=== PATIENT | female | born 1990 | race Caucasian/White ===

== ENCOUNTER 2017-11-01 16:33 | Emergency (ER) | payer OTHER ==
--- NOTE | 2017-11-01 17:14 | PD ---
HPI Chief Complaint Contractions and pelvic pressure Date Seen: November 01, 2017 Time Seen: 17:08 Travel History International Travel<30 Days: No Contact w/Intl Traveler<30Days: No Known Affected Area: No History of Present Illness HPI Patient is 27-year-old white female at 34-1/[address] Lockhart for care presents now complaining of contractions today, no bleeding or leakage of fluid, heart rate tracing is reactive, she is not paula regularly at this time Weeks Gestation: 34 Para: 3 : 4 History Obstetric History Obstetric History 3 vaginal deliveries last one was at 36+ weeks Social History Alcohol Use: No Tobacco Use: No Substance Abuse: No Allergies-Medications (Allergen,Severity, Reaction): Coded Allergies: No Known Allergies (Unverified , 02/18/15) Review of Systems General / Constitutional: No: Fever, Weight Gain, Chills, Other Eyes: No: Diploplia, Blurred Vision, Visual changes, Pain, Photophobia HENT: No: Headaches, Vertigo, Lightheadedness Cardiovascular: No: Irregular Rhythm, Chest Pain or Discomfort, Palpitations, Tachycardia, Syncope, Varicosities, Edema, Cyanosis Respiratory: No: Cough, Short of Breath, Other Gastrointestinal: Abdominal Pain, No: Nausea, Vomiting, Diarrhea Genitourinary: No: Decreased Urinary Output, Oliguria Musculoskeletal: No: Limited ROM, Weakness, Cramping, Edema, Pain Skin: No Rash, No Itching, No Dryness, No Lumps, No Change in Pigmentation, No Change in Nails, No Alopecia, No Lesions Neurologic: No: Weakness, Dizziness, Syncope, Focal Abnormalities, Coordination Problem, Headache, Slurred Speech, Seizures Psychiatric: No: Depression, Suicidal Ideations, Homicidal Ideation Endocrine: No: Heat Intolerance, Cold Intolerance, Polydipsia, Polyuria, Other Physical Exam Narrative GENERAL: Well-nourished, well-developed patient. SKIN: Warm and dry. HEAD: Normocephalic and atraumatic. EYES: No scleral icterus. No injection or drainage. ENT: No nasal drainage noted. Mucous membranes pink. Airway patent. NECK: Supple, trachea midline. No JVD. CARDIOVASCULAR: Regular rate and rhythm without murmurs, gallops, or rubs. RESPIRATORY: Breath sounds equal bilaterally. No accessory muscle use. BREASTS: Bilateral exam showed no masses , no retractions, no nipple discharge. ABDOMEN/GI: Abdomen soft, non-tender, bowel sounds present, no rebound, no guarding Gravid to [34-] weeks size Fundal Height: [-34] GENITOURINARY: External Genitalia: intact and normal in appearance BUS glands: [-] Cervix: [post-] Dilatation: [2-] Effacement: [thick-] Station: [-3] Presentation: [vtx-] Membranes: [intact ] Uterine Contractions: [no reg ctx-] FHT's: Category: [1-] Baseline: [133-] Reactive: [R-] Variability: [mod-] Decels: [-0] EXTREMITIES: No cyanosis or edema. BACK: Nontender without obvious deformity. No CVA tenderness. NEUROLOGICAL: Awake and alert. Motor and sensory grossly within normal limits. Five out of 5 muscle strength in all muscle groups. Normal speech. Data Data Labs Urine dip on OB ED is significant for large blood but negative elsewhere MDM Interpretation(s) 27-year-old white female at 34/35 weeks presents complaining contractions pelvic pressure. Here on OB ED she is not paula regularly heart rate tracing is reactive and her cervix is unchanged from the office check by Dr. Lockhart which was 2 cm/thick/-3 and very posterior. Will monitor for contractions if contractions are seen and will begin IV tocolyse is with IV fluid, subcu terbutaline, IV narcotic if needed. If no contractions are seen and would consider just a pain shot and send the patient home Plan Plan to monitor for contraction activity, p.o. hydrate, at home she can use Tylenol as needed to every 4 as needed, increase her p.o. fluids for hydration, bedrest, heating pad or hot bath for symptom relief. Follow-up with her OB provider Diagnosis Diagnosis: Primary Impression: [place] contractions Additional Impression: 34 weeks gestation of Disposition: 01 DISCHARGE HOME Condition: Stable Evert Maciel II, MD November 01, 2017 17:14
[2017-11-01 18:05] LABS: AMORPHOUS SEDIMENT, URINE RARE; BILIRUBIN, URINE NEG (NEG); BLOOD, URINE MOD (NEG); GLUCOSE,URINE NEG (NEG); KETONE, URINE NEG (NEG); MUCUS URINE FEW /lpf (OCC); NITRITE,URINE NEG (NEG); PH, URINE 6.5 (5.0-8.5); SQUAMOUS EPITHELIAL CELL URINE <1 /hpf (0-5); URINE COLOR YELLOW (YELLW/STRAW); URINE LEUKOCYTE ESTERASE NEG (NEG)
== END 2017-11-01 17:55 | disposition home or self-care (01) ==
LOC: HOBED 16:33
DX: O47.03 False labor before 37 completed weeks of gestation, third trimester (principal); O26.893 Other specified pregnancy related conditions, third trimester; Z3A.34 34 weeks gestation of pregnancy
CPT/HCPCS: 59025; 81001

== ENCOUNTER 2017-11-18 01:32 | Inpatient (IN) | payer OTHER ==
[~2017-11-18] VITALS: Ht 162.6 cm; Wt 57.0 kg
[2017-11-18] VITALS (16 sets, daily range): BP systolic 95–132; BP diastolic 48–86; PULSE 73–95; RESP 16–18; TEMP 97.7–98.2; O2SAT 98
[2017-11-18] MEDS ORDERED: MULT1TAB46 PO (01:56)
[2017-11-18] MEDS ORDERED: LACTATED RINGER'S 1000 ML INJ 1,000 ML IV SCH (02:13)
[2017-11-18] MEDS ORDERED: LACTATED RINGER'S 1000 ML INJ 1,000 ML IV PRN (02:13)
[2017-11-18] MEDS ORDERED: LIDOCAINE HCL 1% 50 ML VIAL I-DERMAL PRN (02:15)
[2017-11-18] MEDS ORDERED: LIDOCAINE HCL 1% 50 ML VIAL INFIL PRN (02:15)
[2017-11-18] MEDS ORDERED: CITRIC ACID-SODIUM CITRATE LIQ 30 ML UDC PO SCH (02:15)
[2017-11-18] MEDS ORDERED: OXYTOCIN 30 UNITS-500ML PREMIX 500 ML IV ONE (02:15)
[2017-11-18] MEDS ORDERED: SODIUM CHLORID 0.9% 500 ML INJ 500 ML IV PRN (02:15)
[2017-11-18] MEDS ORDERED: MINERAL OIL 10 ML VIAL TOPICAL PRN (02:15)
--- NOTE | 2017-11-18 02:26 | HHI.HP ---
History & Physical H&P HPI Chief Complaint ctxs Date Seen: Nov 18, 2017 Time Seen: 02:19 Travel History International Travel<30 Days: No Contact w/Intl Traveler<30Days: No Known Affected Area: No History of Present Illness HPI pt. is a 27 y/o @ 36 6/7 weeks present w/ c/o ctxs. pt. states has been having ctxs thruout the day. was checked at [facility] this am and was 3cm dilated. ctxs continued and increased in freq and intensity. when present cervix 6/80/high with bulging membranes. Weeks Gestation: 36 Para: 3 : 4 History (Limited) History Past Medical History Medical History: Denies Significant Hx Obstetric History Obstetric History , s/p x 3 Past Surgical History Surgical History: No Previous Surgery Family History Family History: Negative Social History Alcohol Use: No Tobacco Use: Yes Substance Abuse: No Allergies-Medications Allergies-Medications (Allergen,Severity, Reaction): Coded Allergies: Penicillins (Verified Allergy, Intermediate, Rash, 11/18/17) Home Meds Reported Medications Multiple Vitamin (Multi Vitamin Daily) 1 Tab Tab, 1 TAB PO DAILY 11/18/17 ROS Review of Systems Except as stated in HPI: all other systems reviewed are Neg Physical Exam Physical Exam Narrative GENERAL: Well-nourished, well-developed patient. SKIN: Warm and dry. HEAD: Normocephalic and atraumatic. EYES: No scleral icterus. No injection or drainage. ENT: No nasal drainage noted. Mucous membranes pink. Airway patent. NECK: Supple, trachea midline. No JVD. CARDIOVASCULAR: Regular rate and rhythm without murmurs, gallops, or rubs. RESPIRATORY: Breath sounds equal bilaterally. No accessory muscle use. ABDOMEN/GI: Abdomen soft, non-tender, bowel sounds present, no rebound, no guarding Gravid GENITOURINARY: External Genitalia: intact and normal in appearance Dilatation: 6 Effacement: 80 Station: high Presentation: cephalic Membranes: intact Uterine Contractions: q-3-5 mins FHT's: Category: 1 Reactive: + Variability: mod EXTREMITIES: No cyanosis or edema. BACK: Nontender without obvious deformity. No CVA tenderness. NEUROLOGICAL: Awake and alert. Motor and sensory grossly within normal limits. Five out of 5 muscle strength in all muscle groups. Normal speech. Data Data Data Vital Signs Reviewed: Yes Orders Orders Admit To Inpatient (11/18/17 ) Code Status (11/18/17 02:13) Vital Signs (Adult) .Per protocol (11/18/17 02:13) Activity Oob Ad Anayeli (11/18/17 02:13) Heart (11/18/17 02:13) Amnioinfusion (11/18/17 02:13) Urinary Catheter Management .ONCE (11/18/17 02:13) Diet Liquid (11/18/17 Breakfast) Lactated Ringer's 1000 Ml Inj (Lr 1000 M (11/18/17 02:13) Lactated Ringer's 1000 Ml Inj (Lr 1000 M (11/18/17 02:13) Sodium Chlorid 0.9% 500 Ml Inj (Ns 500 M (11/18/17 02:15) Sodium Chlor 0.9% 1000 Ml Inj (Ns 1000 M (11/18/17 02:33) Lidocaine 1% Inj (50 Ml) (Xylocaine 1% I (11/18/17 02:15) Citric Acid-Sodium Citrate Liq (Bicitra (11/18/17 02:15) Fentanyl Inj (Fentanyl Inj) (11/18/17 02:15) Fentanyl Inj (Fentanyl Inj) (11/18/17 02:15) Complete Blood Count With Diff (11/18/17 02:13) Hold Clot (11/18/17 02:13) Abo/Rh Blood Type (11/18/17 02:13) Urinalysis - C+S If Indicated (11/18/17 02:13) Drug Screen, Random Urine (11/18/17 02:13) Ob/Psych Drug Screen, Urine (11/18/17 02:13) Resp Oxygen Non Rebreathe Mask (11/18/17 ) ^ Epidural / Intrathecal Infus (11/18/17 02:13) Oxytocin 30 Units-500ml Premix (Pitocin (11/18/17 02:15) Lidocaine 1% Inj (50 Ml) (Xylocaine 1% I (11/18/17 02:15) Light Mineral Oil (Muri-Lube Oil) (11/18/17 02:15) Inpatient Certification (11/18/17 ) Ob (2e) Additional Admit Info (11/18/17 02:17) Group B Strep: Negative MDM MDM Medical Record Reviewed: Yes Plan pt. in labor. pt. to be admitted. may have epidural vs fentanyl for analgesia. fht reassuring. Diagnosis Diagnosis: Primary Impression: Active labor Additional Impression: 36 to 37 weeks gestation of Condition: Stable Michael Perez Jr., MD Nov 18, 2017 02:26
[2017-11-18] MEDS ORDERED: SODIUM CHLOR 0.9% 1000 ML INJ 1,000 ML IV PRN (02:33)
[2017-11-18 03:01] LABS: BILIRUBIN, URINE NEG (NEG); BLOOD, URINE TRACE (NEG); GLUCOSE,URINE NEG (NEG); KETONE, URINE NEG (NEG); NITRITE,URINE NEG (NEG); SQUAMOUS EPITHELIAL CELL URINE 1 /hpf (0-5); URINE COLOR LIGHT-YELLOW (YELLW/STRAW); URINE LEUKOCYTE ESTERASE SMALL (NEG)
[2017-11-18 03:09] LABS: BASOPHIL # 0.1 TH/MM3 (0-0.2); BASOPHIL % 0.4 % (0.0-2.0); EOSINOPHIL # 0.2 TH/MM3 (0-0.4); EOSINOPHIL % 1.2 % (0.0-4.0); HEMATOCRIT 27.6 % (35.0-46.0); HEMOGLOBIN 9.2 GM/DL (11.6-15.3); LYMPH % 14.4 % (9.0-44.0); MEAN CELL VOLUME 87.7 FL (80.0-100.0); MEAN CORPUSCULAR HEMOGLOBIN 29.3 PG (27.0-34.0); MEAN CORPUSCULAR HGB CONC 33.4 % (32.0-36.0); MEAN PLATELET VOLUME 8.7 FL (7.0-11.0); MONO % 6.1 % (0.0-8.0); MONOCYTE # 1.2 TH/MM3 (0-0.9); NEUT % 77.9 % (16.0-70.0); PLATELET COUNT 366 TH/MM3 (150-450); RED BLOOD COUNT 3.15 MIL/MM3 (4.00-5.30); RED CELL DISTRIBUTION WIDTH 12.4 % (11.6-17.2); WHITE BLOOD COUNT 20.5 TH/MM3 (4.0-11.0)
[2017-11-18] MEDS ORDERED: LIDOCAINE HCL 1% PF 30 ML VIAL ONE (03:28)
--- NOTE | 2017-11-18 06:49 | PD.OB.DELI ---
Weeks gestation: 36 Anesthesia: None Episiotomy: None Vaginal Delivery: Normal Presentation: Occiput anterior Nuchal Cord: None Delayed cord clamping (45 sec): Yes Infant: Male, Single Delivery date: Nov 18, 2017 Delivery time: 06:37 One Minute : 9 Five Minute : 9 Placenta: Spontaneous delivery, Intact, 3 vessel cord Laceration: No lacerations Estimated blood loss: 300 Annalise Kahn MD Nov 18, 2017 06:49
[2017-11-18] MEDS ORDERED: oxyCODONE/ACETAMINOPHEN 5 MG/325 MG TAB PO PRN ×2 (07:00)
[2017-11-18] MEDS ORDERED: DOCUSATE SODIUM 50 MG/SENNA 8.6 MG TAB PO PRN (07:00)
[2017-11-18] MEDS ORDERED: SODIUM CHLORIDE 0.9% FLUSH 10 ML FLUSH IV FLUSH PRN (07:00)
[2017-11-18] MEDS ORDERED: ALUMINUM/MAGNESIUM/SIMETH 30 ML CUP PO PRN (07:00)
[2017-11-18] MEDS ORDERED: OXYTOCIN 30 UNITS-500ML PREMIX 500 ML IV SCH (07:00)
[2017-11-18] MEDS ORDERED: ZOLPIDEM TARTRATE 5 MG TAB PO PRN (07:00)
[2017-11-18] MEDS ORDERED: ONDANSETRON ODT 4 MG TAB PO PRN (07:00)
[2017-11-18] MEDS ORDERED: BENZOCAINE 20% TOPICAL SPRAY 60 ML CAN TOPICAL PRN (07:00)
[2017-11-18] MEDS: IBUPROFEN 800 MG TAB PO PRN ×3 (07:09→21:21)
[2017-11-18] MEDS: WITCH HAZEL 50%/GLYCERIN 12.5% 40 PAD JAR TOPICAL PRN (08:42)
[2017-11-18] MEDS: ACETAMINOPHEN 325 MG TAB PO PRN ×3 (08:54→21:21)
[2017-11-18] MEDS: SODIUM CHLORIDE 0.9% FLUSH 10 ML FLUSH IV FLUSH SCH (09:00)
[2017-11-18] MEDS ORDERED: DIPHTH/TETANUS/ACEL PERTUSSIS (BOOSTER) 0.5 ML VIAL/PFS IM ONE (16:00)
[2017-11-18] MEDS ORDERED: MEASLES, MUMPS, RUBELLA VACCINE 0.5 ML VIAL SQ ONE (16:00)
[2017-11-19] MEDS: ACETAMINOPHEN 325 MG TAB PO PRN ×5 (01:07→21:06)
[2017-11-19] MEDS: IBUPROFEN 800 MG TAB PO PRN ×3 (05:25→21:06)
--- NOTE | 2017-11-19 07:49 | HHI.OB ---
Subjective Post Day: 1 Remarks doing well Objective Vitals/I&O Vital Signs Date Time Temp Pulse Resp B/P (MAP) Pulse Ox O2 Delivery O2 Flow Rate FiO2 11/18/17 20:00 98.2 81 18 95/57 (70) 98 11/18/17 08:00 73 126/75 (92) Objective Remarks GENERAL: Well-nourished, well-developed patient. ABDOMEN/GI: Abdomen soft, non-tender. Fundus: Firm, non-tender at umbilicus. GENITOURINARY: Light to moderate bleeding. EXTREMITIES: No cyanosis or edema, non-tender, without signs of DVT. Medications and IVs Current Medications Medications (Trade) Dose Ordered Sig/Bronson Route Start Time Stop Time Status Last Admin (NS Flush) 2 ml BID IV FLUSH 11/18/17 09:00 (NS Flush) 2 ml UNSCH PRN IV FLUSH 11/18/17 07:00 (Tylenol) 650 mg Q4H PRN PO 11/18/17 07:00 11/19/17 05:25 (Motrin) 800 mg Q8H PRN PO 11/18/17 07:00 11/19/17 05:25 (Percocet 5-325 Mg) 1 tab Q4H PRN PO 11/18/17 07:00 (Percocet 5-325 Mg) 2 tab Q4H PRN PO 11/18/17 07:00 (Americaine 20% Top Spr) 1 spray Q4H PRN TOPICAL 11/18/17 07:00 11/18/17 08:42 (Tucks Pads) 1 applic QID PRN TOPICAL 11/18/17 07:00 11/18/17 08:42 (Rebecca-Colace) 2 tab Q12H PRN PO 11/18/17 07:00 (Ambien) 5 mg HS PRN PO 11/18/17 07:00 (Mag-Al Plus Susp Liq) 15 ml Q8H PRN PO 11/18/17 07:00 (Zofran Odt) 4 mg Q6H PRN PO 11/18/17 07:00 Assessment/Plan Problem List: (1) Vaginal delivery ICD Codes: O80 - Vaginal delivery Status: Acute Figueroa Stern MD Nov 19, 2017 07:49
--- NOTE | 2017-11-19 07:50 | HHI.DCPOC ---
Discharge Care Plan Diagnosis: (1) Vaginal delivery Report Symptoms to Your Doctor -Temperature above 100.5 degrees -Redness, of incision or excessive or foul smelling drainage -Unusual pain or calf pain -Increased vaginal bleeding -Painful or difficulty urinating -Feelings of extreme sadness or anxiety after 2 weeks Goals to Promote Your Health * To prevent worsening of your condition and complications * To maintain your health at the optimal level Directions to Meet Your Goals Take your medications as prescribed Follow your dietary instruction Follow activity as directed Ensure plenty of rest for recovery Drink fluids for hydration Keep your appointments as scheduled Take your immunizations and boosters as scheduled If your symptoms worsen call your PCP, if no PCP go to Urgent Care Center or Emergency Room Smoking is Dangerous to Your Health. Avoid second hand smoke Call the 24-hour crisis hotline for domestic abuse at Figueroa Stern MD Nov 19, 2017 07:50
[2017-11-19] MEDS ORDERED: OXYC1TAB63 PO (07:52)
--- NOTE | 2017-11-19 07:53 | HHI.DS ---
Admission Date Nov 18, 2017 at 02:18 Discharge Date: Nov 20, 2017 Admitting Diagnosis Diagnosis: (1) 36 to 37 weeks gestation of Diagnosis: Principal Status: Acute (2) Vaginal delivery Diagnosis: Principal ICD Codes: O80 - Vaginal delivery Status: Acute Delivery Date: Nov 18, 2017 Vaginal Delivery: Normal, Spontaneous : Male, Single Brief History pt. is a 27 y/o @ 36 6/7 weeks present w/ c/o ctxs. pt. states has been having ctxs thruout the day. was checked at [facility] this am and was 3cm dilated. ctxs continued and increased in freq and intensity. when present cervix 6/80/high with bulging membranes. 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
[2017-11-19 08:00] VITALS: BP 113/69; PULSE 74; RESP 20; TEMP 98; O2SAT 97
[2017-11-19] MEDS: SODIUM CHLORIDE 0.9% FLUSH 10 ML FLUSH IV FLUSH SCH (09:00)
[2017-11-19 20:41] VITALS: BP 112/68; PULSE 67; RESP 18; TEMP 98.2
[2017-11-20] MEDS: WITCH HAZEL 50%/GLYCERIN 12.5% 40 PAD JAR TOPICAL PRN (02:04)
[2017-11-20] MEDS: ACETAMINOPHEN 325 MG TAB PO PRN ×3 (02:04→13:36)
[2017-11-20] MEDS: IBUPROFEN 800 MG TAB PO PRN (05:59)
[2017-11-20 07:38] VITALS: BP 114/68; PULSE 60; RESP 20; TEMP 98; O2SAT 98
[2017-11-20] MEDS: SODIUM CHLORIDE 0.9% FLUSH 10 ML FLUSH IV FLUSH SCH (11:00)
== END 2017-11-20 14:10 | disposition home or self-care (01) | DRG 775 ==
LOC: HOBED 01:32 → H2EA 02:18 → H1EA 08:27
PROVIDERS: ADMIT Obstetrics & Gynecology; ATTEND Obstetrics & Gynecology
PROC: 10E0XZZ Delivery of Products of Conception, External Approach (ICD-10-PCS; principal; 2017-11-18)
PROC: 30233S1 Transfusion of Nonautologous Globulin into Peripheral Vein, Percutaneous Approach (ICD-10-PCS; 2017-11-19)
DX: O60.14X0 Preterm labor third trimester with preterm delivery third trimester, not applicable or unspecified (principal); Z23 Encounter for immunization; Z37.0 Single live birth; Z3A.36 36 weeks gestation of pregnancy; Z72.0 Tobacco use
CPT/HCPCS: 59025; 80307; 81001; 85025; 85461; 86850; 86900; 86901; 90384; G0481; J2790; J7120